=== PATIENT | male | born 1985 | race Two or more races ===

== ENCOUNTER 2016-08-04 00:45 | Emergency (ER) | payer MEDICAID ==
[~2016-08-04] VITALS: Ht 172.7 cm; Wt 77.1 kg
[~2016-08-04 00:45] MED LIST: HYDR7.5T; IBUP800T24; LORAPOW30; PHEN100C70
[2016-08-04] MEDS ORDERED: ACCU-CHEK COMFORT CURVE STRIP VI ONE (01:15)
[2016-08-04 01:32] LABS: Basophils # (auto) 0.3 uL; Eosinophils # (auto) 0 uL; Eosinophils % (auto) 0.1 % (0.0-7.0); Hematocrit 42.3 % (41.0-53.0); Lymphocytes # (auto) 0.8 uL; Mean Corpuscular Hemoglobin 32.5 pg (28.0-32.0); Mean Corpuscular Volume 98.4 fL (80.0-100.0); Mean Platelet Volume 7.9 fL (7.4-10.4); Monocytes # (auto) 0.5 uL; Monocytes % (auto) 5.4 % (0.0-12.0); Neutrophils # (auto) 7.3 uL; Neutrophils % (auto) 82.5 % (37.0-80.0); Platelet Count (auto) 323 10^3/uL (140-450); Red Cell Distribution Width 12.1 % (11.6-16.0); White Blood Cell 8.9 10^3/uL (4.4-10.8)
[2016-08-04 01:53] LABS: Albumin 3.1 g/dL (3.4-5.0); Anion Gap 12 (5-15); Aspartate Aminotransferase 53 U/L (15-37); BUN/Creatinine Ratio 15.4; Blood Urea Nitrogen 12 mg/dL (7-18); Calcium 8.2 mg/dL (8.5-10.1); Carbon Dioxide 22 mmol/L (21-32); Chloride 105 mmol/L (98-107); GFR African American 149 mL/min; GFR Non-African American 123 mL/min; Glucose 110 mg/dL (74-106); Sodium 139 mmol/L (136-145)
[2016-08-04 01:55] LABS: Alkaline Phosphatase 94 U/L (45-117); Bilirubin, Total 0.5 mg/dL (0.2-1.0); Total Protein 6.6 g/dL (6.4-8.2)
[2016-08-04 02:29] LABS: Urine Bilirubin Negative (Negative); Urine Blood Negative /uL (Negative); Urine Color Yellow (Yellow); Urine Glucose Normal (Normal); Urine Hyaline Cast FEW /lpf (0 - 2); Urine Ketone Negative (Negative); Urine Mucus FEW (None Seen); Urine Nitrite Negative (Negative); Urine RBC 5 /hpf (0 - 3); Urine Urobilinogen Normal (Negative); Urine pH 5.5 (5.0-8.0)
[2016-08-04 04:26] VITALS: BP 123/65
== END 2016-08-04 04:36 | disposition left against medical advice (07) ==
LOC: EDBD 00:45 → ER 00:45
DX: G40.909 Epilepsy, unspecified, not intractable, without status epilepticus (principal); R42 Dizziness and giddiness; R53.1 Weakness; F17.210 Nicotine dependence, cigarettes, uncomplicated; F12.10 Cannabis abuse, uncomplicated; F15.10 Other stimulant abuse, uncomplicated; Z91.14 Patient's other noncompliance with medication regimen; V49.9XXA Car occupant (driver) (passenger) injured in unspecified traffic accident, initial encounter; Y93.89 Activity, other specified; Y99.8 Other external cause status; Y92.89 Other specified places as the place of occurrence of the external cause
CPT/HCPCS: 36415; 70450; 80053; 80185; 80307; 80320; 81001; 85025; 93005; 94761

== ENCOUNTER 2017-03-19 03:56 | Emergency (ER) | payer MEDICAID ==
[~2017-03-19] VITALS: Ht 172.7 cm; Wt 72.6 kg
[2017-03-19] MEDS ORDERED: LORazepam 2MG/ML-1ML VIAL IV ONE (05:00)
[2017-03-19] MEDS ORDERED: IBUPROFEN 600 MG TAB PO ONE (05:00)
[2017-03-19] MEDS ORDERED: SODIUM CHLORIDE 0.9% 1,000 ML IV ONE ×2 (05:00→06:15)
[2017-03-19 05:07] LABS: Basophils # (auto) 0 uL; Basophils % (auto) 0.3 % (0.0-2.0); Eosinophils # (auto) 0 uL; Eosinophils % (auto) 0.3 % (0.0-7.0); Hematocrit 46.3 % (41.0-53.0); Hemoglobin 15.8 g/dL (13.5-17.5); Lymphocytes # (auto) 1.7 uL; Lymphocytes % (auto) 14.2 % (10.0-50.0); Mean Corpuscular Hemoglobin 31.5 pg (28.0-32.0); Mean Corpuscular Hgb Conc. 34.1 g/dL (32.0-36.0); Mean Corpuscular Volume 92.4 fL (80.0-100.0); Monocytes # (auto) 0.7 uL; Monocytes % (auto) 5.5 % (0.0-12.0); Neutrophils # (auto) 9.8 uL; Neutrophils % (auto) 79.7 % (37.0-80.0); Nucleated Red Blood Cells % 0.1 %; Platelet Count (auto) 247 10^3/uL (140-450); Red Blood Cells 5.02 10^6/uL (4.5-5.90); Red Cell Distribution Width 14.3 % (11.8-14.3); White Blood Cell 12.3 10^3/uL (4.4-10.8)
[2017-03-19 05:22] LABS: Magnesium 2.2 mg/dL (1.6-2.6); Potassium 3.6 mmol/L (3.5-5.1)
[2017-03-19 05:33] LABS: Bilirubin, Total 0.2 mg/dL (0.2-1.0); Total Protein 6.6 g/dL (6.4-8.2)
[2017-03-19 06:38] LABS: Barbiturate Scree,Urine NEGATIVE (NEGATIVE); Benzodiazephine Screen, Urine NEGATIVE (NEGATIVE); Cannabinoid Screen, Urine NEGATIVE (NEGATIVE); Cocaine Screen, Urine NEGATIVE (NEGATIVE); Opiate Scree,Urine NEGATIVE (NEGATIVE); Phencyclidine Screen, Urine NEGATIVE (NEGATIVE)
[2017-03-19 06:56] LABS: Amphetamine Screen, Urine NEGATIVE (NEGATIVE)
[2017-03-19 11:50] VITALS: BP 143/93
== END 2017-03-19 12:15 | disposition home or self-care (01) ==
LOC: EDBD 03:56 → ER 04:03
DX: R53.1 Weakness (principal); G40.909 Epilepsy, unspecified, not intractable, without status epilepticus
CPT/HCPCS: 36415; 70450; 71010; 80053; 80307; 83735; 85025; 93005; 96361; 96374; 99285; J2060; J7030

== ENCOUNTER 2017-05-09 20:26 | Inpatient (IN) | payer MEDICAID ==
[~2017-05-09] VITALS: Ht 177.8 cm; Wt 71.9 kg
[2017-05-09 21:38] LABS: Urine Bacteria NONE SEEN /hpf (None Seen); Urine Blood Negative /uL (Negative); Urine Mucus FEW (None Seen); Urine Specific Gravity 1.031 (1.001-1.035); Urine WBC 20 /hpf (0 - 3)
[2017-05-09 21:59] LABS: Alcohol, Urine < 3.0 mg/dL (0-5); Amphetamine Screen, Urine POSITIVE (NEGATIVE); Barbiturate Scree,Urine NEGATIVE (NEGATIVE); Benzodiazephine Screen, Urine POSITIVE (NEGATIVE); Cannabinoid Screen, Urine NEGATIVE (NEGATIVE); Cocaine Screen, Urine NEGATIVE (NEGATIVE); Opiate Scree,Urine POSITIVE (NEGATIVE); Phencyclidine Screen, Urine NEGATIVE (NEGATIVE)
[2017-05-09 23:56] LABS: Hematocrit 41.9 % (41.0-53.0); Hemoglobin 13.5 g/dL (13.5-17.5); Mean Corpuscular Hemoglobin 29.9 pg (28.0-32.0); Mean Corpuscular Hgb Conc. 32.2 g/dL (32.0-36.0); Mean Corpuscular Volume 92.8 fL (80.0-100.0); Platelet Count (auto) 325 10^3/uL (140-450); Red Blood Cells 4.52 10^6/uL (4.5-5.90); Red Cell Distribution Width 13.9 % (11.8-14.3); White Blood Cell 28.8 10^3/uL (4.4-10.8)
[2017-05-09 23:59] LABS: Basophils % (manual) 0 (0.0-2.0); Blast Cells 0; Eosinophils % (manual) 0 (0-7); Metamyelocytes % 0; Myelocytes % 0; Promyelocytes % 0; Reactive Lymphocytes 0
[2017-05-10 00:10] LABS: Albumin 2.4 g/dL (3.4-5.0); Calcium 8.3 mg/dL (8.5-10.1); Potassium 3.9 mmol/L (3.5-5.1)
[2017-05-10 00:12] LABS: Bilirubin, Total 0.5 mg/dL (0.2-1.0); Total Protein 5.9 g/dL (6.4-8.2)
[2017-05-10] MEDS ORDERED: MORPHINE SULFATE 4 MG/ML SYR/VIAL IV ONE (00:15)
[2017-05-10] MEDS ORDERED: cefTRIAXone 1GM/10ml IVPUSH 10 ML IV ONE (00:15)
[2017-05-10] MEDS ORDERED: VANCOMYCIN 1GM/250ML 250 ML IV ONE (00:15)
[2017-05-10] MEDS ORDERED: ONDANSETRON HCL 4 MG/2 ML VIAL IV ONE (00:15)
[2017-05-10 01:25] LABS: Band Neutrophils % (manual) 5; Lymphocytes % (manual) 4 (10.0-50.0); Monocytes % (manual) 1 (0-12)
[2017-05-10 04:45] VITALS: BP 126/74
[2017-05-10] MEDS: MORPHINE SULFATE 4 MG/ML SYR/VIAL IV PRN ×4 (05:04→19:46)
[2017-05-10 05:30] VITALS: BP 126/74
[2017-05-10 07:00] VITALS: BP 117/62
[2017-05-10] MEDS: PIPERACILLIN-TAZOB 3.375GM 50 ML IV SCH ×4 (07:01→23:46)
[2017-05-10 07:55] LABS: Basophils # (auto) 0 uL; Basophils % (auto) 0.1 % (0.0-2.0); Eosinophils # (auto) 0 uL; Eosinophils % (auto) 0.1 % (0.0-7.0); Hemoglobin 13.2 g/dL (13.5-17.5); Lymphocytes # (auto) 1.2 uL; Lymphocytes % (auto) 4.3 % (10.0-50.0); Mean Corpuscular Hemoglobin 29.6 pg (28.0-32.0); Mean Corpuscular Hgb Conc. 32.2 g/dL (32.0-36.0); Mean Corpuscular Volume 92.1 fL (80.0-100.0); Monocytes # (auto) 1.7 uL; Monocytes % (auto) 6.2 % (0.0-12.0); Neutrophils # (auto) 24.8 uL; Neutrophils % (auto) 89.3 % (37.0-80.0); Platelet Count (auto) 360 10^3/uL (140-450); Red Blood Cells 4.45 10^6/uL (4.5-5.90); Red Cell Distribution Width 13.9 % (11.8-14.3); White Blood Cell 27.8 10^3/uL (4.4-10.8)
[2017-05-10 08:26] LABS: BUN/Creatinine Ratio 8.6; Bilirubin, Total 0.3 mg/dL (0.2-1.0); Calcium 7.5 mg/dL (8.5-10.1); Total Protein 5.3 g/dL (6.4-8.2)
[2017-05-10 11:00] VITALS: BP 119/68
[2017-05-10] MEDS ORDERED: VANCOMYCIN PER PHARMACY 0 MG IV SCH (13:45)
[2017-05-10] MEDS: LORazepam 2MG/ML-1ML VIAL IV PRN ×2 (14:04→20:53)
[2017-05-10] MEDS: VANCOMYCIN 1,250 MG in D5W 5% 250 ML IV SCH (16:10)
[2017-05-10 16:27] VITALS: BP 125/65
[2017-05-10] MEDS: traZODone HCL 50 MG TAB PO SCH (21:57)
[2017-05-10 22:00] VITALS: BP 103/50
[2017-05-11] MEDS: MORPHINE SULFATE 4 MG/ML SYR/VIAL IV PRN ×5 (00:54→21:38)
[2017-05-11] MEDS: VANCOMYCIN 1,250 MG in D5W 5% 250 ML IV SCH ×2 (03:49→16:21)
[2017-05-11 05:00] VITALS: BP 111/65
[2017-05-11] MEDS: PIPERACILLIN-TAZOB 3.375GM 50 ML IV SCH ×4 (06:59→23:53)
[2017-05-11 07:31] LABS: Basophils # (auto) 0 uL; Basophils % (auto) 0.2 % (0.0-2.0); Eosinophils # (auto) 0 uL; Eosinophils % (auto) 0.1 % (0.0-7.0); Hematocrit 39.5 % (41.0-53.0); Lymphocytes # (auto) 1.4 uL; Lymphocytes % (auto) 5.1 % (10.0-50.0); Mean Corpuscular Hemoglobin 30.5 pg (28.0-32.0); Mean Corpuscular Volume 92.5 fL (80.0-100.0); Monocytes # (auto) 1.8 uL; Monocytes % (auto) 6.9 % (0.0-12.0); Neutrophils # (auto) 23.4 uL; Neutrophils % (auto) 87.7 % (37.0-80.0); Platelet Count (auto) 422 10^3/uL (140-450); Red Blood Cells 4.27 10^6/uL (4.5-5.90); Red Cell Distribution Width 14.4 % (11.8-14.3); White Blood Cell 26.7 10^3/uL (4.4-10.8)
[2017-05-11 07:45] LABS: Calcium 8.1 mg/dL (8.5-10.1); Potassium 3.9 mmol/L (3.5-5.1)
[2017-05-11 07:47] LABS: BUN/Creatinine Ratio 9.1
[2017-05-11 07:49] LABS: Bilirubin, Total 0.5 mg/dL (0.2-1.0); Total Protein 6.3 g/dL (6.4-8.2)
[2017-05-11 09:06] VITALS: BP 113/67
[2017-05-11 12:00] VITALS: BP 107/66
[2017-05-11] MEDS: LORazepam 2MG/ML-1ML VIAL IV PRN (16:20)
[2017-05-11 18:08] VITALS: BP 110/65
[2017-05-11] MEDS ORDERED: PAR20T PO (19:10)
[2017-05-11] MEDS ORDERED: ALPR1TAB2 PO (19:10)
[2017-05-11] MEDS ORDERED: HYDR50CA PO (19:10)
[2017-05-11] MEDS: IBUPROFEN 600 MG TAB PO PRN (20:36)
[2017-05-11] MEDS: traZODone HCL 50 MG TAB PO SCH (21:37)
[2017-05-11 22:00] VITALS: BP 105/60
[2017-05-12] MEDS: MORPHINE SULFATE 4 MG/ML SYR/VIAL IV PRN ×4 (03:49→20:12)
[2017-05-12] MEDS: VANCOMYCIN 1,250 MG in D5W 5% 250 ML IV SCH ×3 (04:17→19:34)
[2017-05-12 05:00] VITALS: BP 98/64
[2017-05-12] MEDS: PIPERACILLIN-TAZOB 3.375GM 50 ML IV SCH ×4 (06:14→23:20)
[2017-05-12 09:00] VITALS: BP 104/69
[2017-05-12 13:00] VITALS: BP 101/68
[2017-05-12] MEDS: LORazepam 2MG/ML-1ML VIAL IV PRN ×2 (14:49→20:55)
[2017-05-12 17:00] VITALS: BP 105/69
[2017-05-12] MEDS: IBUPROFEN 600 MG TAB PO PRN (18:00)
[2017-05-12 20:00] VITALS: BP 104/57
[2017-05-12] MEDS: traZODone HCL 50 MG TAB PO SCH (21:27)
[2017-05-12 22:00] VITALS: BP 104/57
[2017-05-13] MEDS: VANCOMYCIN 1,250 MG in D5W 5% 250 ML IV SCH ×2 (01:58→10:00)
[2017-05-13 05:00] VITALS: BP 104/70
[2017-05-13] MEDS: MORPHINE SULFATE 4 MG/ML SYR/VIAL IV PRN ×2 (05:08→09:14)
[2017-05-13] MEDS: PIPERACILLIN-TAZOB 3.375GM 50 ML IV SCH ×2 (05:09→11:14)
[2017-05-13] MEDS: LORazepam 2MG/ML-1ML VIAL IV PRN ×2 (06:40→11:14)
[2017-05-13 07:47] LABS: Basophils # (auto) 0.1 uL; Basophils % (auto) 0.9 % (0.0-2.0); Eosinophils # (auto) 0.2 uL; Lymphocytes # (auto) 0.8 uL; Monocytes # (auto) 1.2 uL
[2017-05-13 07:51] LABS: Eosinophils % (auto) 1.7 % (0.0-7.0); Hemoglobin 13.3 g/dL (13.5-17.5); Lymphocytes % (auto) 6.9 % (10.0-50.0); Mean Corpuscular Hemoglobin 30.4 pg (28.0-32.0); Mean Corpuscular Hgb Conc. 33.3 g/dL (32.0-36.0); Mean Corpuscular Volume 91.2 fL (80.0-100.0); Neutrophils # (auto) 9.9 uL; Neutrophils % (auto) 80.5 % (37.0-80.0); Platelet Count (auto) 541 10^3/uL (140-450); Red Blood Cells 4.38 10^6/uL (4.5-5.90); Red Cell Distribution Width 14.1 % (11.8-14.3); White Blood Cell 12.3 10^3/uL (4.4-10.8)
[2017-05-13 07:55] LABS: Albumin 1.7 g/dL (3.4-5.0); Bilirubin, Total 0.3 mg/dL (0.2-1.0); Total Protein 6.4 g/dL (6.4-8.2)
[2017-05-13 08:00] VITALS: BP 109/70
[2017-05-13 08:18] VITALS: BP 109/70
[2017-05-13 12:01] VITALS: BP 108/66
== END 2017-05-13 13:19 | disposition home or self-care (01) | DRG 720 ==
LOC: ER 20:26 → TELE 20:27 → TELE-EAST 05-10 04:45 → EAST 05-12 19:22
PROVIDERS: ADMIT Nurse Practitioner Family; ATTEND Internal Medicine
DX: A41.9 Sepsis, unspecified organism (principal); E43 Unspecified severe protein-calorie malnutrition; L03.115 Cellulitis of right lower limb; L03.116 Cellulitis of left lower limb; F10.10 Alcohol abuse, uncomplicated; F17.210 Nicotine dependence, cigarettes, uncomplicated; F19.10 Other psychoactive substance abuse, uncomplicated; E11.9 Type 2 diabetes mellitus without complications; Z82.49 Family history of ischemic heart disease and other diseases of the circulatory system; Z83.3 Family history of diabetes mellitus; Z88.8 Allergy status to other drugs, medicaments and biological substances; Z68.22 Body mass index [BMI] 22.0-22.9, adult
CPT/HCPCS: 36415; 73590; 74176; 80053; 80185; 80202; 80307; 81001; 83605; 85007; 85025; 85027; 87040; 96365; 96367; 96375; J2405; J2543; J7060

== ENCOUNTER 2017-07-23 23:22 | Emergency (ER) | payer MEDICAID ==
[~2017-07-23] VITALS: Ht 162.6 cm; Wt 65.8 kg
[~2017-07-23 23:22] MED LIST changes: +ALPR1TAB2 PO; +HYDR50CA PO; +PAR20T PO
[2017-07-23 23:37] VITALS: BP 136/84
[2017-07-24 01:08] LABS: Basophils # (auto) 0.1 uL; Basophils % (auto) 0.8 % (0.0-2.0); Eosinophils # (auto) 0 uL; Eosinophils % (auto) 0.4 % (0.0-7.0); Hematocrit 41.2 % (41.0-53.0); Hemoglobin 13.5 g/dL (13.5-17.5); Lymphocytes # (auto) 1.1 uL; Lymphocytes % (auto) 9.5 % (10.0-50.0); Mean Corpuscular Hemoglobin 28.9 pg (28.0-32.0); Mean Corpuscular Hgb Conc. 32.8 g/dL (32.0-36.0); Monocytes # (auto) 0.8 uL; Monocytes % (auto) 7.3 % (0.0-12.0); Neutrophils # (auto) 9.1 uL; Nucleated Red Blood Cells % 0.1 %; Platelet Count (auto) 389 10^3/uL (140-450); Red Blood Cells 4.68 10^6/uL (4.5-5.90); Red Cell Distribution Width 14.8 % (11.8-14.3); White Blood Cell 11.1 10^3/uL (4.4-10.8)
[2017-07-24 01:16] LABS: INR 0.95 (0.9-1.15); Partial Thromboplastin Time 25.1 sec (22.64-33.71); Prothrombin Time 10.4 sec (9.37-12.3)
[2017-07-24 01:25] LABS: Albumin 2.8 g/dL (3.4-5.0); BUN/Creatinine Ratio 17.8; Calcium 8.3 mg/dL (8.5-10.1); Potassium 4.4 mmol/L (3.5-5.1)
[2017-07-24 01:27] LABS: Urine Bacteria NONE SEEN /hpf (None Seen); Urine Blood Negative /uL (Negative); Urine Hyaline Cast MANY /lpf (0 - 2); Urine Mucus FEW (None Seen); Urine Sperm PRESENT /hpf (None Seen); Urine WBC 31 /hpf (0 - 3)
[2017-07-24 01:34] LABS: Bilirubin, Total 0.3 mg/dL (0.2-1.0); Total Protein 6.7 g/dL (6.4-8.2)
[2017-07-24 01:41] LABS: Alcohol, Urine < 3.0 mg/dL (0-5); Amphetamine Screen, Urine POSITIVE (NEGATIVE); Barbiturate Scree,Urine NEGATIVE (NEGATIVE); Benzodiazephine Screen, Urine POSITIVE (NEGATIVE); Cannabinoid Screen, Urine NEGATIVE (NEGATIVE); Cocaine Screen, Urine NEGATIVE (NEGATIVE); Phencyclidine Screen, Urine NEGATIVE (NEGATIVE)
[2017-07-24 01:50] LABS: Opiate Scree,Urine POSITIVE (NEGATIVE)
== END 2017-07-24 | disposition left against medical advice (07) ==
LOC: EDUNIT# 23:22 → ER 23:22 → EDBD 23:22 → ER 07-24
DX: R56.9 Unspecified convulsions (principal); Z53.21 Procedure and treatment not carried out due to patient leaving prior to being seen by health care provider
CPT/HCPCS: 36415; 80053; 80307; 81001; 85025; 85610; 85730

== ENCOUNTER 2017-11-23 11:59 | Emergency (ER) | payer MEDICAID ==
[~2017-11-23] VITALS: Ht 177.8 cm; Wt 72.6 kg
[2017-11-23 12:14] VITALS: BP 122/82
== END 2017-11-23 12:19 | disposition left against medical advice (07) ==
LOC: EDBD 11:59 → ER 11:59
DX: T40.1X1A Poisoning by heroin, accidental (unintentional), initial encounter (principal); Z53.21 Procedure and treatment not carried out due to patient leaving prior to being seen by health care provider; Y92.89 Other specified places as the place of occurrence of the external cause